=== PATIENT | male | born 1955 | race African-American/Black ===

== ENCOUNTER 2018-07-07 13:51 | Emergency (ER) | payer OTHER ==
[~2018-07-07] VITALS: Ht 182.9 cm; Wt 89.1 kg
[2018-07-07 13:52] VITALS: BP 133/89
[2018-07-07] MEDS ORDERED: GuaiFENesin/D-METHORPHAN [SUGAR-FREE] 200-20MG/10 ML SYRUP UDCUP PO ONE (14:30)
[2018-07-07] MEDS ORDERED: ACETAMINOPHEN 325 MG TABLET PO ONE (14:30)
== END 2018-07-07 14:45 | disposition home or self-care (01) ==
LOC: EMS 13:53
DX: J06.9 Acute upper respiratory infection, unspecified (principal)